=== PATIENT | female | born 1990 | race Asian ===

== ENCOUNTER → 2017-06-28 | Outpatient (CLI) | payer OTHER ==
--- NOTE | 2017-06-28 14:55 | DIAGNOSTIC IMAGING REPORT ---
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 TECHNIQUE: Multisequence, multiplanar MR imaging of the right wrist was performed without the use of intravenous contrast. IV contrast: None. COMPARISON: None. FINDINGS: Localizer images: Unremarkable. Focal bony edema/cystic change noted within the triquetrum. Focal cartilage thinning noted at the ulnar aspect of the triquetrum. Positive ulnar variance evident with the ulna extending approximately 8 mm beyond the distal radial articular surface. Evidence of chronic ulnar styloid fracture with 2 adjacent ossicles noted, one of which may be located within the substance of the jugular fibrocartilage complex possibly indicating changes related to chronic injury. The triangular fibrocartilage complex is otherwise normal. Minimal bony edema/cystic change noted at the radial styloid. Scapholunate interosseous ligaments intact. The lunotriquetral interosseous ligaments intact. Carpal tunnel normal in appearance. Normal signal intensity of the median nerve. Normal appearance of Guyon's canal. Soft tissue edema noted deep to and tracking along the extensor carpi radialis brevis tracking along the dorsal intercarpal ligament. IMPRESSION: 1. Positive ulnar variance with focal bony edema/cystic change and cartilage thinning in the triquetrum likely a consequence of impaction. An ossicle within the substance of the triangular fibrocartilage complex may relate to chronic injury and/or the presence of a chronic ulnar styloid fracture. 2. Edema deep to the extensor carpi radialis brevis with minimal fluid in the tendon sheath. This could indicate mild tenosynovitis. 3. Minimal degenerative changes at the radial styloid. Electronically signed by: David Richardson M.D. 06/28/2017 2:53 PM Dictated Date/Time: 06/28/2017 2:41 PM
== END | disposition home or self-care (01) ==
LOC: C.MRI 13:23
PROVIDERS: ATTEND Orthopaedic Surgery
DX: M25.839 Other specified joint disorders, unspecified wrist (principal)